=== PATIENT | female | born 1945 | race Caucasian/White ===

== ENCOUNTER → 2017-04-06 | Outpatient (CLI) | payer MEDICARE, OTHER ==
[~2017-04-06] MED LIST: AUGMENTIN875 MG PO; DYAZIDE, MA1 CAPSULE PO; HYDROCODON-ACE1 EAC7 PO; IBUPROFEN400 MG PO; LISINOPRIL20 MG PO; MULTI-DAY VITA1 EACH PO; NORCO 5/3251 TABLET PO; PRAVACHOL40 MG PO; SYNTHROID100 MCG PO; TYLENOL EXTRA500 MG PO
== END | disposition home or self-care (01) ==
LOC: CDC 09:39
DX: R94.31 Abnormal electrocardiogram [ECG] [EKG] (principal)
CPT/HCPCS: 93000